=== PATIENT | male | born 1955 | race Caucasian/White ===

== ENCOUNTER 2017-04-13 23:01 | Emergency (ER) | payer MEDICARE ==
--- NOTE | 2017-04-13 23:03 | ED.REPORT ---
HPI-Chest Pain 40 and Over Date of Service Apr 13, 2017 ED Provider: Gus Yin MD Pt is a 61 year old male with a hx of HTN, DM II and hyperlipidemia presenting to the ED via EMS complaining of sudden onset 4/10 chest pain and SOB onset at rest around 2200. Associated symptoms include weakness and diaphoresis. Medics report that he has been working outside a lot recently building a deck but today was resting due to not feeling well. The pain was initially at a 10/10 but when medics arrived it had subsided to a 2/10 chest tightness. Pt was given I Nitro and ASA en route. Nursing Notes Stated Complaint: GENERALIZED WEAKNESS, CHEST PAIN, LOW BP Chief Complaint: Chest pain Nursing Notes Reviewed: Yes Allergies: Coded Allergies: clindamycin (Verified Allergy, Unknown, RASH, 04/08/16) niacin (Verified Allergy, Unknown, FLUSH AND FEELS UNCOMFORTABLE, 04/08/16) General Time Seen by MD: 23:02 Chief Complaint Chest pain Hx Obtained From: Patient, EMS Arrived By: Ambulance Sudden in Onset?: Yes Onset Occurred: 1 - 4 hours ago Symptom Duration: Since onset Quality: Painful Severity: Current: Pain level 4 out of 10 Severity: Maximum: Pain level 10 out of 10 Recent Healthcare: No recent doctor visit, No recent hospitalization Similar Sx Previous: Yes Past Medical History Past Medical History Hypertension DM (on insulin) High Colesterol Heart attack and stroke in the s PTSD Chrones disease Social History Alcohol Use: Denies alcohol use Drug Use: Denies drug use Ambulatory Status Independent Review of Systems Constitutional: Reports: Weakness - generalized, Denies: Fever Respiratory: Reports: Shortness of breath Cardiovascular: Reports: Chest pain GI: Denies: Abdominal pain, Vomiting Skin: Reports Diaphoresis Complete sys rev & neg: except as marked. Physical Exam Initial Vital Signs Vital Signs (First) Date Time Temp Pulse Resp B/P Pulse Ox O2 Delivery O2 Flow Rate FiO2 04/13/17 23:23 36.7 78 16 130/74 97 Room Air Initial VS: Reviewed, Vital signs normal Head / Eyes: Atraumatic, Normocephalic, PERRL ENT: Mucous membranes moist, Conjunctiva normal, No scleral icterus Neck: Supple, Non-tender, Full range of motion Extremities: Vascular intact, Neuro intact, No swelling, No tenderness Skin: Warm, Dry, No cyanosis Neurologic: Alert, Oriented, Nonfocal Psychiatric: Mood/affect normal, Behavior normal, Normal thought content General/Constitutional: Awake, Alert Appearance / Presentation: Positive: Obese Respiratory / Chest: Atraumatic, No chest tenderness, No chest wall deformity Resp Distress / Stridor: Positive: Resp distress mild Cardiovascular: Heart rate NL, Regular rhythm, Heart sounds NL Abdomen: Atraumatic, Soft, Non-tender Interpretation & Diagnostics Lab Results Interpretation Result Diagram: 04/13/17 2311 04/13/17 2311 Test 04/13/17 23:11 04/14/17 02:15 White Blood Count 6.3th/mm3 (3.8-10.1) Red Blood Count 3.92mil/mm3 (4.40-5.80) Hemoglobin 12.6g/dL (13.8-17.2) Hematocrit 37.0% (41.0-50.0) Mean Corpuscular Volume 94.4fL (81-100) Mean Corpuscular Hemoglobin 32.1pg (27.0-35.0) Mean Corpuscular Hemoglobin Concent 34.1% (32.0-37.0) Red Cell Distribution Width 13.2% (12.3-15.4) Platelet Count 274bil/L (150-400) Neutrophils (%) (Auto) 59.2% (40-74) Lymphocytes (%) (Auto) 27.5% (14-46) Monocytes (%) (Auto) 10.1% (4-12) Eosinophils (%) (Auto) 2.4% (0-5) Basophils (%) (Auto) 0.5% (0-3) D-Dimer < 0.50mg/L FEU (<0.50) Sodium Level 142mEq/L (134-144) Potassium Level 3.7mEq/L (3.5-5.2) Chloride Level 102mEq/L (97-108) Carbon Dioxide Level 25mmol/L (18-29) Blood Urea Nitrogen 12mg/dL (8-27) Creatinine 0.70mg/dL (0.76-1.27) Estimat Glomerular Filtration Rate 121mL/min (>59) Glucose Level 179mg/dL (60-99) Calcium Level 8.9mg/dL (8.5-10.1) Magnesium Level 1.9mg/dL (1.6-2.6) Total Bilirubin 0.5mg/dL (0.0-1.2) Aspartate Amino Transf (AST/SGOT) 21U/L (0-50) Alanine Aminotransferase (ALT/SGPT) 20U/L (0-44) Alkaline Phosphatase 65U/L (25-160) Pro-B-Type Natriuretic Peptide 9.40pg/mL (0-210) Total Protein 6.8g/dL (6.4-8.4) Albumin 4.1g/dL (3.4-5.0) Hold Mosley Top Tube Received (Received) Troponin T 0.010ug/L (0.0-0.011) Lab Results Interpretation: Elevated nonfasting glucose, troponin negative 2, d-dimer negative. ECG Interpretation ECG Interpretation: Left anterior fascicular block. Time: 23:06 Interpreted by: ED physician Normal ECG Interpretation: Normal rate (78), Normal sinus rhythm Time: 03:21 Normal ECG Interpretation: Normal rate (74), Normal sinus rhythm X-Ray Chest Interpretation Chest Xray Interpretation: Poor inspiration. No acute pulmonary disease seen. View: Portable, 1 view Interpretation / Wet Read by: Wet read ED physician Re-Eval/Medical Decision Med Decision/Clinical Course 61-year-old male who had chest discomfort and shortness of breath. These have resolved. His ED workup is negative to include negative EKG 2, negative troponin 2, and negative d-dimer. Time of Eval: 01:09 Patient Status: Condition improved Re-Evaluation/Progress Note: Discussed radiology results and plan for repeat Troponin. Time of Eval: 03:19 Patient Status: Condition improved Re-Evaluation/Progress Note: Discussed plan for repeat EKG and discharge. Pt understands and agrees. Counseled Regarding: Diagnosis, Lab results, Need for follow-up, When/why to return to ED Discharge & Departure Primary Impression: Chest pain with low risk for cardiac etiology Disposition: Home Discharge Condition All VS Reviewed: Yes Condition: Improved Patient Instructions: Chest Pain (ED) Additional Instructions: No evidence at this time of serious illness. Your chest x-ray is okay. Your labs do not show evidence of cardiac injury or blood clots in the lungs. Recommended you return to the emergency room over the weekend if he worsens significantly or scheduled to see your provider this week and talk to him about further evaluation if needed. [facility] [place] Attestation Portions of this note were transcribed by Jocelyne Villar. I, Dr. Yin personally performed the history, physical exam and medical decision-making; I reviewed and confirmed the accuracy of the information in the transcribed note. Signed by: Divya Carbajal, 04/13/2017 at 0330. copies to: [facility] [place] [place] Gus Su MD Apr 13, 2017 23:02 JOCELYNE VILLAR Apr 13, 2017 23:10
[2017-04-13] MEDS ORDERED: Nitroglycerin 2% 1 Gm Ointment TOPICAL ONE (23:10)
[2017-04-13 23:23] VITALS: BP 130/74; PULSE 78; RESP 16; O2SAT 97
[2017-04-13 23:31] LABS: BASOPHILS % (AUTO) 0.5 % (0-3); EOSINOPHILS % (AUTO) 2.4 % (0-5); MONOCYTES % (AUTO) 10.1 % (4-12); Mean Corpuscular Hemoglobin 32.1 pg (27.0-35.0); Mean Corpuscular Volume 94.4 fL (81-100); NEUTROPHILS % (AUTO) 59.2 % (40-74); Platelet Count 274 bil/L (150-400)
[2017-04-14 00:09] LABS: Magnesium 1.9 mg/dL (1.6-2.6); TROPONIN T 0.01 ug/L (0.0-0.011)
[2017-04-14] MEDS ORDERED: 0.9% Sodium Chloride 1,000 ML IV ONE (01:25)
[2017-04-14 03:51] VITALS: BP 120/67; PULSE 69; RESP 19; O2SAT 94
[2017-04-14] MEDS ORDERED: Insulin Human NPH-Reg 70-30 100 Unit/mL 10 ML Mdv SUBQ SCH (07:30)
--- NOTE | 2017-04-14 08:05 | DRSVH ---
PROCEDURE: X-RAY CHEST ONE VIEW, PORTABLE ([id number]) INDICATIONS: chest pain TECHNIQUE: One view of the chest was acquired. COMPARISON: None. FINDINGS: Surgical changes and devices: None. Lungs and pleura: No pleural effusions or pneumothorax. Lung volumes are low. There is bilateral per ihilar and basilar atelectasis versus atypical pneumonia. Mediastinum: Mediastinal contours appear normal. Heart size is normal. Bones and chest wall: No suspicious bony lesions. Overlying soft tissues appear unremarkable. IMPRESSION: Low lung volumes with bilateral atelectasis versus atypical pneumonia. Dictated by: Alex Lazo M.D. on 04/14/2017 at 8:03 Approved by: Alex Lazo M.D. on 04/14/2017 at 8:03
[2017-04-15] MEDS ORDERED: AZTH50T PO (15:40)
[2017-04-15] MEDS ORDERED: FLUT16SP NS (15:40)
[2017-04-15] MEDS ORDERED: ASPI1CPM6 PO (15:40)
[2017-04-15] MEDS ORDERED: GABA-502 PO ×2 (15:40)
[2017-04-15] MEDS ORDERED: DEXT1DRO8 BOTH_EYES (15:40)
[2017-04-15] MEDS ORDERED: CYCL10TA9 PO (15:40)
[2017-04-15] MEDS ORDERED: CARB1TAB14 PO (15:40)
[2017-04-15] MEDS ORDERED: LISI1TAB11 PO (15:40)
[2017-04-15] MEDS ORDERED: IPRA4AER IH (15:40)
[2017-04-15] MEDS ORDERED: NPH,100V11 SUBQ ×2 (15:40)
[2017-04-15] MEDS ORDERED: AMMO385C5 TP (15:40)
[2017-04-15] MEDS ORDERED: LIP40 PO (15:40)
[2017-04-15] MEDS ORDERED: ESCI20TA38 PO (15:40)
[2017-04-15] MEDS ORDERED: NITR0.4T6 SL (15:41)
[2017-04-15] MEDS ORDERED: LORA10CA PO (15:41)
[2017-04-15] MEDS ORDERED: PANT40TA3 PO (15:43)
[2017-04-15] MEDS ORDERED: TERA5CAP6 PO (15:43)
[2017-04-15] MEDS ORDERED: PRAZ2CAP2 PO (15:43)
[2017-04-15] MEDS ORDERED: TRAZ150T72 PO (15:43)
[2017-04-15] MEDS ORDERED: SODI126M NS (15:43)
[2017-04-15] MEDS ORDERED: DIPH25CA6 PO (15:46)
[2017-04-15] MEDS ORDERED: ASPI81TA3 PO (15:46)
[2017-04-15] MEDS ORDERED: CHOL200025 PO (15:46)
[2017-04-15] MEDS ORDERED: METF1000 PO (15:51)
== END 2017-04-14 03:52 | disposition home or self-care (01) ==
LOC: SED 23:01
DX: R07.89 Other chest pain (principal); R06.02 Shortness of breath; I10 Essential (primary) hypertension; E11.9 Type 2 diabetes mellitus without complications; E78.5 Hyperlipidemia, unspecified; Z86.73 Personal history of transient ischemic attack (TIA), and cerebral infarction without residual deficits; Z79.4 Long term (current) use of insulin; Z88.1 Allergy status to other antibiotic agents; Z88.8 Allergy status to other drugs, medicaments and biological substances
CPT/HCPCS: 36415; 71010; 80053; 83735; 83880; 84484; 85025; 85378; 93005; 96360; 96372; 99285; J1815; J7030

== ENCOUNTER 2017-04-15 13:15 | Observation (INO) | payer MEDICARE, OTHER ==
[2017-04-15] VITALS (10 sets, daily range): BP systolic 94–134; BP diastolic 39–87; PULSE 63–77; RESP 12–22; O2SAT 97–99
[~2017-04-15] VITALS: Ht 165.1 cm; Wt 113.4 kg
--- NOTE | 2017-04-15 13:22 | ED.REPORT ---
HPI-Chest Pain 40 and Over Date of Service Apr 15, 2017 ED Provider: Betsy Barton MD 61-year-old gentleman with a history of a prior STEMI in the , hypertension and diabetes who presents to the ED via EMS for his second visit in 48 hours complaining of chest pain. Associated symptoms include diaphoresis, weakness, shortness of breath and pain in his left leg. The patient reports that he was pounding stakes with a hammer outside when he began to have a sharp pain in his left leg that soon began to radiate up into his chest and jaw. He describes the pain as a pressure. The pain got progressively worse so the patient's friend called EMS. Prior to arrival to the ED, medics gave the patient ASA and nitro with some relief of pain. He also reports noticing that his glucose has been high for the last few days. Patient states that after being discharged from the hospital two days ago, he had no chest pain yesterday but did not exert himself. He was seen two days ago in the ED, after some exertional chest pain, that he initially rated 10/10. After receiving nitro, his pain went down to a 2/10 when medics arrived. He was pain-free by the time he arrived to the ED. Patient had a full unremarkable workup in the emergency room including 2 hour repeat troponin which was unremarkable and he was discharged home. Nursing Notes Stated Complaint: CHEST PAIN/SHORTNESS OF BREATH Chief Complaint: Chest Pain Nursing Notes Reviewed: Yes Allergies: Coded Allergies: clindamycin (Verified Allergy, Unknown, RASH, 04/08/16) niacin (Verified Allergy, Unknown, FLUSH AND FEELS UNCOMFORTABLE, 04/08/16) Scheduled Albuterol/Ipratropium (Combivent Respimat Inhal [place]) 120 Spr/4 Gm Inhaler 1 PUFF IH QID Ammonium Lactate (Ammonium Lactate) 140 Gm Cream..g. 1 APPLIC TP BID Aspirin/Dipyridamole (Aspirin-Dipyridam ER 25-200 mg) 25 Mg-200 Mg Cpmp.12hr 1 EACH PO BID Atorvastatin (Lipitor) 40 Mg Tablet 40 MG PO HS Azathioprine (Azathioprine) 50 Mg Tablet 100 MG PO QAM Carbidopa/Levodopa 25-100 mg (Carbidopa/Levodopa 25-100 mg) 1 Each Tablet 1 TABLET PO HS Escitalopram Oxalate (Escitalopram Oxalate) 20 Mg Tablet 20 MG PO QAM Fluticasone Propionate (Fluticasone Propionate Nasal) 16 Gm [place].susp 2 SPRAY NS QAM Gabapentin (Gabapentin) 300 Mg Capsule 300 MG PO QAM Gabapentin (Gabapentin) 300 Mg Capsule 600 MG PO HS Lisinopril / HCTZ 20-25 mg (Lisinopril / HCTZ 20-25 mg) 1 Each Tablet 1 EACH PO QAM Loratadine (Claritin) 10 Mg Capsule 10 MG PO QAM NPH, Human Insulin Isophane (HUMulin-N U100 Insulin Vial) 100 Unit/1 Ml Vial 45 UNIT SUBQ DAILYWM NPH, Human Insulin Isophane (HUMulin-N U100 Insulin Vial) 100 Unit/1 Ml Vial 40 UNIT SUBQ DAILYWD Pantoprazole DR (Pantoprazole DR) 40 Mg Tablet.dr 40 MG PO BIDWM Prazosin (Prazosin) 2 Mg Capsule 2 MG PO HS Sodium Chloride (Saline Nasal Mist) 126 Ml Mist 1 SPRAY NS QAM Terazosin (Terazosin) 5 Mg Capsule 5 MG PO HS Trazodone (Trazodone) 150 Mg Tablet 300 MG PO HS Scheduled PRN Cyclobenzaprine (Cyclobenzaprine) 10 Mg Tablet 10 MG PO TID PRN PRN Spasm Dextran 70/Hypromellose/Pf (Artificial Tears Drops) 1 Each Droperette 1 DROP BOTH_EYES QID PRN PRN DRY EYES Nitroglycerin SL (Nitroglycerin SL) 0.4 Mg Tab.subl 0.4 MG SL Q5MIN PRN PRN For Chest Pain General Time Seen by MD: 13:20 Chief Complaint Chest pain Hx Obtained From: Patient Arrived By: Ambulance Sudden in Onset?: Yes Onset Occurred: Just prior to arrival Location: : Substernal Quality: Pressure Radiation: : Jaw Severity: Current: Mild Severity: Maximum: Moderate Recent Healthcare: Recent doctor visit Similar Sx Previous: Yes Past Medical History Past Medical History Hypertension DM (on insulin) High Colesterol Heart attack and stroke in the s PTSD Chrones disease Social History Alcohol Use: Denies alcohol use Drug Use: Denies drug use Other Social History: Good social support, Ambulatory Status Independent Review of Systems Review of Systems Note: +jaw pain Constitutional: Reports: Weakness - generalized, Denies: Chills, Fever Respiratory: Reports: Shortness of breath, Denies: Non-productive cough Cardiovascular: Reports: Chest pain, Dyspnea on exertion Musculoskeletal: Reports: Extremity pain (left leg) Skin: Reports Diaphoresis, Denies Itching, Denies Rash Complete sys rev & neg: except as marked. Physical Exam Initial Vital Signs Vital Signs (First) Date Time Temp Pulse Resp B/P Pulse Ox O2 Delivery O2 Flow Rate FiO2 04/15/17 13:18 36.7 77 17 130/54 97 Room Air Initial VS: Reviewed General/Constitutional: Awake, Alert, No acute distress Respiratory / Chest: Atraumatic, Breath sounds NL, Breath sounds = bilat, No respiratory distress Cardiovascular: Heart rate NL, Regular rhythm, Heart sounds NL Abdomen: Atraumatic, Soft, Non-tender Neck: Atraumatic, Supple Lower Extremity / Pelvis / MS: Atraumatic, No edema Skin: Atraumatic, No rash appears flushed Neurologic: Oriented X3, Speech NL, No motor deficits, No sensory deficits Psychiatric: Affect NL, Mood NL Head / Eyes: Atraumatic, Normocephalic photophobic Upper Extremity / MS: Atraumatic, Full range of motion Interpretation & Diagnostics Lab Results Interpretation Result Diagram: 04/15/17 1350 04/15/17 1350 Test 04/15/17 13:50 White Blood Count 7.7th/mm3 (3.8-10.1) Red Blood Count 3.69mil/mm3 (4.40-5.80) Hemoglobin 11.9g/dL (13.8-17.2) Hematocrit 34.7% (41.0-50.0) Mean Corpuscular Volume 94.0fL (81-100) Mean Corpuscular Hemoglobin 32.2pg (27.0-35.0) Mean Corpuscular Hemoglobin Concent 34.3% (32.0-37.0) Red Cell Distribution Width 13.1% (12.3-15.4) Platelet Count 257bil/L (150-400) Neutrophils (%) (Auto) 68.2% (40-74) Lymphocytes (%) (Auto) 20.6% (14-46) Monocytes (%) (Auto) 9.3% (4-12) Eosinophils (%) (Auto) 1.4% (0-5) Basophils (%) (Auto) 0.4% (0-3) Activated Partial Thromboplast Time 23.6sec (22.8-33.0) Sodium Level 143mEq/L (134-144) Potassium Level 3.6mEq/L (3.5-5.2) Chloride Level 105mEq/L (97-108) Carbon Dioxide Level 23mmol/L (18-29) Blood Urea Nitrogen 14mg/dL (8-27) Creatinine 1.00mg/dL (0.76-1.27) Estimat Glomerular Filtration Rate 80mL/min (>59) Glucose Level 95mg/dL (60-99) Calcium Level 8.9mg/dL (8.5-10.1) Magnesium Level 1.7mg/dL (1.6-2.6) Total Bilirubin 0.5mg/dL (0.0-1.2) Aspartate Amino Transf (AST/SGOT) 14U/L (0-50) Alanine Aminotransferase (ALT/SGPT) 15U/L (0-44) Alkaline Phosphatase 58U/L (25-160) Troponin T < 0.010ug/L (0.0-0.011) Total Protein 6.1g/dL (6.4-8.4) Albumin 3.8g/dL (3.4-5.0) ECG Interpretation ECG Interpretation: left axis deviation similar to prior with no acute ischemia Time: 13:34 Interpreted by: ED physician Normal ECG Interpretation: Normal rate (79), Normal sinus rhythm ECG Interpretation: with recurrent pain, no ST changes Time: 14:04 Interpreted by: ED physician Normal ECG Interpretation: Normal rate (72), Normal sinus rhythm X-Ray Chest Interpretation Chest Xray Interpretation: IMPRESSION: Reduced inspiration, lordotic positioning, no definite acute disease. Source of chest pain is not found. Dictated by: Anupam Alegre M.D. on 04/15/2017 at 14:23 Approved by: Anupam Alegre M.D. on 04/15/2017 at 14:24 View: Portable, 1 view Interpretation / Wet Read by: Interpret - Radiologist Re-Eval/Medical Decision Med Decision/Clinical Course 61-year-old woman with recurrent chest pain with exertion. Present to the emergency room with ear workup for same 48 hours ago. Multiple risk factors for coronary artery disease. Pain recurred with exertion today. Resolved with nitroglycerin. With the nitroglycerin had worn off he did have additional pain at rest but again resolved with sublingual nitroglycerin and has remained pain free on Nitropaste with a heparin drip. EKGs do not show acute ischemic changes, troponin is unremarkable review of labs are unremarkable. The was contacted and there are no beds available so he will be admitted to our hospitalist service. Time of Eval: 13:38 Re-Evaluation/Progress Note: Discussed plan for consult with cardiology and plan for admit. Patient understands and agrees to plan. All questions were addressed. Time of Eval: 13:52 Re-Evaluation/Progress Note: Patient reports that the chest pressure has returned. Plan for repeat EKG and nitro paste. Counseled Regarding: Diagnosis, Lab results, Need for admission Discharge & Departure Primary Impression: Chest pain on exertion Disposition: ADMITTED TO HOSPITAL Discharge Condition All VS Reviewed: Yes Condition: Stable [facility] Divya Attestation Portions of this note were transcribed by Josephine Grimes. I, Dr. Barton personally performed the history, physical exam and medical decision-making; I reviewed and confirmed the accuracy of the information in the transcribed note. Signed by: Divya Finnegan, 04/15/17 and 1400 copies to: [facility] Betsy Barton MD Apr 15, 2017 13:22 Bhavna Grimes Apr 15, 2017 13:45
[2017-04-15] MEDS ORDERED: Heparin 5,000 Unit/mL Inj IVPUSH ONE (13:45)
[2017-04-15] MEDS ORDERED: Heparin 25K Unit/500mL 0.45 NS 25,000 UNIT in IV Premix 1 EACH IV ONE (13:45)
[2017-04-15] MEDS ORDERED: Nitroglycerin 2% 1 Gm Ointment TOPICAL ONE (13:55)
[2017-04-15 14:00] LABS: BASOPHILS % (AUTO) 0.4 % (0-3); EOSINOPHILS % (AUTO) 1.4 % (0-5); MONOCYTES % (AUTO) 9.3 % (4-12); Mean Corpuscular Hemoglobin 32.2 pg (27.0-35.0); NEUTROPHILS % (AUTO) 68.2 % (40-74); Platelet Count 257 bil/L (150-400)
--- NOTE | 2017-04-15 14:26 | DRSVH ---
PROCEDURE: X-RAY CHEST ONE VIEW, PORTABLE ([id number]) INDICATIONS: chest pain TECHNIQUE: One view of the chest was acquired. COMPARISON: [facility], CR, XR CHEST 1VW (PORTABLE), 04/13/2017, 23:05. [facility], CR, XR CHEST 1VW (PORTABLE), 04/08/2016, 11:04. FINDINGS: Surgical changes and devices: None. Lungs and pleura: No pleural effusions or pneumothorax. Lungs are clear. Mediastinum: Mediastinal contours appear normal. Heart size is normal. Bones and chest wall: No suspicious bony lesions. Overlying soft tissues appear unremarkable. IMPRESSION: Reduced inspiration, lordotic positioning, no definite acute disease. Source of chest pa in is not found. Dictated by: Anupam Alegre M.D. on 04/15/2017 at 14:23 Approved by: Anupam Alegre M.D. on 04/15/2017 at 14:24
[2017-04-15 14:29] LABS: Magnesium 1.7 mg/dL (1.6-2.6)
[2017-04-15 14:39] LABS: TROPONIN T < 0.010 ug/L (0.0-0.011)
[2017-04-15] MEDS ORDERED: DEXT1DRO8 BOTH_EYES (15:40)
[2017-04-15] MEDS ORDERED: ESCI20TA38 PO (15:40)
[2017-04-15] MEDS ORDERED: AZTH50T PO (15:40)
[2017-04-15] MEDS ORDERED: IPRA4AER IH (15:40)
[2017-04-15] MEDS ORDERED: CYCL10TA9 PO (15:40)
[2017-04-15] MEDS ORDERED: CARB1TAB14 PO (15:40)
[2017-04-15] MEDS ORDERED: NPH,100V11 SUBQ ×2 (15:40)
[2017-04-15] MEDS ORDERED: GABA-502 PO ×2 (15:40)
[2017-04-15] MEDS ORDERED: ASPI1CPM6 PO (15:40)
[2017-04-15] MEDS ORDERED: FLUT16SP NS (15:40)
[2017-04-15] MEDS ORDERED: LIP40 PO (15:40)
[2017-04-15] MEDS ORDERED: LISI1TAB11 PO (15:40)
[2017-04-15] MEDS ORDERED: AMMO385C5 TP (15:40)
[2017-04-15] MEDS ORDERED: NITR0.4T6 SL (15:41)
[2017-04-15] MEDS ORDERED: LORA10CA PO (15:41)
[2017-04-15] MEDS ORDERED: SODI126M NS (15:43)
[2017-04-15] MEDS ORDERED: TERA5CAP6 PO (15:43)
[2017-04-15] MEDS ORDERED: TRAZ150T72 PO (15:43)
[2017-04-15] MEDS ORDERED: PRAZ2CAP2 PO (15:43)
[2017-04-15] MEDS ORDERED: PANT40TA3 PO (15:43)
[2017-04-15] MEDS ORDERED: Ondansetron 2 mg/mL 2 mL Inj IVPUSH PRN ×2 (15:45→16:30)
[2017-04-15] MEDS ORDERED: Alum-Mag Hydrox-Simeth 30 mL Suspension PO PRN ×2 (15:45→16:30)
[2017-04-15] MEDS ORDERED: ASPI81TA3 PO (15:46)
[2017-04-15] MEDS ORDERED: DIPH25CA6 PO (15:46)
[2017-04-15] MEDS ORDERED: CHOL200025 PO (15:46)
[2017-04-15] MEDS ORDERED: METF1000 PO (15:51)
[2017-04-15] MEDS: Sodium Chloride LOK Flush 10 mL Syringe IVFLUSH SCH (16:30)
[2017-04-15] MEDS ORDERED: Polyethylene Glycol (PEG) 17 Gm Powder PO PRN (16:30)
[2017-04-15] MEDS ORDERED: Atropine 1 mg/10 mL (Code) Syringe IVPUSH PRN (16:30)
[2017-04-15] MEDS ORDERED: Senna-Docusate 8.6-50 mg Tablet PO PRN (16:30)
[2017-04-15] MEDS ORDERED: diphenhydrAMINE 25 mg Capsule PO PRN (16:40)
[2017-04-15] MEDS ORDERED: Albuterol-Ipratropium 3 mL Inhalation Solution NEB PRN (16:40)
[2017-04-15] MEDS ORDERED: Heparin 25K Unit/500mL 0.45 NS 25,000 UNIT in IV Premix 1 EACH IV SCH (16:45)
[2017-04-15] MEDS ORDERED: Heparin 5,000 Unit/mL Inj IVPUSH PRN (16:45)
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
[2017-04-15] MEDS: Sodium Chloride NAS 45 mL Spray NASAL SCH (17:10)
[2017-04-15] MEDS: Artificial Tears 15 mL Ophthalmic Solution BOTH_EYES SCH ×2 (17:20→19:54)
--- NOTE | 2017-04-15 17:47 | NUR ---
Admit Patient arrived to room 2028 via gurney. Ambulated independently to bed. Patient A&Ox3, VSS, states chest pain is much better now, rates it 2/. Dyspnea noted on exertion, patient on 2L NC, SPO2 mid - high 90s. Patient pleasant and cooperative with admission assessment. at bedside and call light within reach.
[2017-04-15] MEDS: Pantoprazole 40 mg ER24 Tablet PO SCH (18:15)
--- NOTE | 2017-04-15 18:34 | PCM.ADCARE ---
Advance Care Planning Note Plan: Purpose of encounter: Goals of care Parties in attendance: The patient, Patient's (Donna), the patient's best friend, Dr. Cardona Decisional capacity: Good Diagnosis: Hypertension History of CVA Insulin-dependent diabetes type II Chest pain Morbid obesity GERD Parkinson's-like illness History of Crohn's Depression/anxiety/PTSD Plan: The patient is aware of the current diagnosis and would like to continue to be full code. The patient and his understands that this means for chest compressions, intubation, pressors, and all measures involved with CPR. CODE STATUS: Full code Time spent with advanced care planning: Greater than 16 minutes Emiliana Cardona DO Apr 15, 2017 18:34
[2017-04-15] MEDS: Ammonium Lactate TOPICAL SCH (20:30)
[2017-04-15] MEDS ORDERED: Dipyridamole-Aspirin 200-25 mg ER12 Capsule PO SCH (20:30)
[2017-04-15] MEDS ORDERED: Insulin Human NPH 100 Unit/mL 3 mL Inj SUBQ SCH (21:00)
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
[2017-04-16] MEDS: Sodium Chloride LOK Flush 10 mL Syringe IVFLUSH SCH ×2 (00:30→07:56)
[2017-04-16 03:56] VITALS: BP 101/53; PULSE 62; RESP 20; O2SAT 98
[2017-04-16 04:53] LABS: BASOPHILS % (AUTO) 0.2 % (0-3); EOSINOPHILS % (AUTO) 2.6 % (0-5); Mean Corpuscular Hemoglobin 32.4 pg (27.0-35.0); NEUTROPHILS % (AUTO) 62.3 % (40-74); Platelet Count 240 bil/L (150-400)
[2017-04-16 05:06] LABS: INR 0.99 ratio
[2017-04-16 05:12] LABS: Magnesium 1.8 mg/dL (1.6-2.6); Phosphorus 4.1 mg/dL (2.5-4.9)
--- NOTE | 2017-04-16 06:27 | NUR ---
Anxiety/CP Pt anxious over speaking with Administration regarding [employer]. 10 mins after conversation pt complained of 7/10 CP. STAT EKG showed no changes. Two doses of nitroglycerine given to take pain back down to 2/10 which is baseline at start of shift.
[2017-04-16] MEDS: Artificial Tears 15 mL Ophthalmic Solution BOTH_EYES SCH ×2 (06:30→10:53)
[2017-04-16 07:36] VITALS: PULSE 61; RESP 20; O2SAT 99
[2017-04-16 07:54] VITALS: BP 114/67; PULSE 64; RESP 18; O2SAT 98
[2017-04-16] MEDS ORDERED: Insulin Human NPH 100 Unit/mL 3 mL Inj SUBQ SCH (08:00)
[2017-04-16] MEDS: Ammonium Lactate TOPICAL SCH (08:30)
[2017-04-16] MEDS ORDERED: Fluticasone 0.05% 15 Spray/2 Gm 16 Gm Nasal Spray NASAL SCH (08:30)
--- NOTE | 2017-04-16 08:30 | NUR ---
Off unit Pt off unit for stress test at 0815. Tele removed and IV SL from Heparin. Blood glucose this am was 80, pt had been NPO will hold am medications till pt arrives back to the unit. Vitals stable.
--- NOTE | 2017-04-16 09:26 | PCM.DIMED ---
Liu Ambrose DO 04/16/17 0922: Discharge Instructions Date of Service Apr 16, 2017 Dates of Hospitalization Apr 15, 2017 at 15:49 Discharge Diagnosis Discharge Diagnosis Exertional chest pain, POA, acute. Active Insulin dependent DM2, POA, chronic. Active HTN, POA, chronic. Active Seasonal Allergies, POA, chronic. Stable Morbid Obesity, POA, chronic. Stable GERD, POA, chronic. Stable BPH, POA, chronic. Stable History of CVA, chronic. Stable Parkinson's like illness, POA, Chronic. Stable History of Crohn's, POA, chronic. Stable Depression and anxiety, POA, chronic. Stable Medication Instructions Additional med instructions Continue other home meds as previously prescribed. You may take ibuprofen as needed for chest wall pain. Test Results Test Results X-RAY CHEST ONE VIEW, PORTABLE IMPRESSION: Reduced inspiration, lordotic positioning, no definite acute disease. Source of chest pain is not found. Dictated by: Anupam Alegre M.D. on 04/15/2017 at 14:23 Approved by: Anupam Alegre M.D. on 04/15/2017 at 14:24 1 DAY PHARMACOLOGICAL STRESS TEST IMPRESSION: Normal low risk pharmaceutical nuclear stress study 1) Normal myocardial stress perfusion study with no evidence of ischemia or infarction. 2) Normal left ventricular size, wall motion, and systolic function (post stress EF 63%). 3) No ECG evidence of ischemia with lexiscan. 4) No angina during the entire study. 5) Compared to the nuclear stress test done 03/12/2012, no significant change. Dictated by: Shari Deleon M.D. on 04/16/2017 at 15:45 Approved by: Shari Deleon M.D. on 04/16/2017 at 15:49 Diet Discharge Diet: No restrictions, Diabetic Activity Discharge Activity: No restrictions Call your provider Call your provider for: Fever or Chills, Shortness of breath, Bleeding, Chest pain, Vomitting, Excessive diarrhea, Weakness (unilateral) Patient Instructions Patient Instructions You came to the emergency department yesterday with concern for chest pain. Based on the labs that we are able to obtain as well as the stress test performed today, I am not concerned that this is a cardiac issue. I would like you to continue taking the medications listed above Follow-up plan Please follow-up with your primary care provider within the next week for further management of your symptoms. [facility] Follow-up with PCP in: 1 week Emiliana Cardona DO 04/16/172036: Discharge Instructions Attending's Statement The patient was seen and examined together with Dr. Ambrose on 04/16/17 and I agree with the history, exam and plan as outlined in the note above. Lui Ambrose DO Apr 16, 2017 09:22 Emiliana Cardona DO Apr 16, 2017 20:37
[2017-04-16 10:24] VITALS: PULSE 69
[2017-04-16] MEDS: Pantoprazole 40 mg ER24 Tablet PO SCH (10:46)
[2017-04-16] MEDS: Sodium Chloride NAS 45 mL Spray NASAL SCH (10:49)
[2017-04-16 11:47] VITALS: BP 125/75; PULSE 58; RESP 21; O2SAT 94
--- NOTE | 2017-04-16 15:32 | NUR ---
Spoke with Aura Escalera [place] patient access and this patient is 100% permanent and total. This patient holds no other insurance. Updated [employer]
--- NOTE | 2017-04-16 15:51 | DRSVH ---
PROCEDURE: 1 DAY PHARMACOLOGICAL STRESS TEST Rest and pharmacological stress myocardial perfusion SPECT with gated imaging and ejection fraction RADIOPHARMACEUTICAL: 16.8 mCi Tc-99m tetrafosmin IV at rest and 46.2 mCi Tc-99m tetrafosmin IV at pe ak effect of pharmacological stress. A [id number] was performed. INDICATIONS: CHEST PAIN. TECHNIQUE: Radiopharmaceutical was injected at peak stress test, and also at rest. SPECT images wer e obtained. SPECT myocardial perfusion images were displayed in short axis, horizontal long axis, an d vertical long axis views. Gated images were reviewed using Rescale software. COMPARISON: [facility], [place], MYOCARD PERF SPECT MULT, MIBI, 03/12/2012, 12:28. CARDIAC STRESS: A pharmacologic stress test was performed under the supervision of an attending staff, using an infus ion of lexiscan 0.4mg IV X1. Hemodynamic data: There is normal blood pressure and heart rate response to pharmacologic stress. Symptoms: The patient denied anginal chest pain. Aminophylline: 100mg. EKG: No diagnostic changes of ischemia; rare PACs. FINDINGS: Raw data: There is good myocardial uptake of radiotracer. No significant motion artifacts. Left ventricle function: Gated images demonstrate normal left ventricular wall thickening. No segme ntal wall motion abnormalities. No transient ischemic dilation. Left ventricle resting end diastoli c volume is 91 mL. Left ventricle stress ejection fraction is 63%; normal range is above 45%. Myocardial perfusion: There is normal distribution of activity in the right and left ventricular victorino cardium. No fixed or reversible perfusion defects. IMPRESSION: Normal low risk pharmaceutical nuclear stress study 1) Normal myocardial stress perfusion study with no evidence of ischemia or infarction. 2) Normal left ventricular size, wall motion, and systolic function (post stress EF 63%). 3) No ECG evidence of ischemia with lexiscan. 4) No angina during the entire study. 5) Compared to the nuclear stress test done 03/12/2012, no significant change. Dictated by: Shari Deleon M.D. on 04/16/2017 at 15:45 Approved by: Shari Deleon M.D. on 04/16/2017 at 15:49
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
--- NOTE | 2017-04-16 17:14 | NUR ---
Discharge Pt left with at 1715. A&Ox3, vitals stable, all belongings taken with. IV and tele removed. All discharge instructions gone over and understood. No changes in home medications. Follow up apt to be made by patient due to [facility] being so [facility] Pt wheeled out and with no complaints. All questions answered.
== END 2017-04-16 17:32 | disposition home or self-care (01) ==
LOC: SED 13:15 → PCC 15:49
PROVIDERS: ADMIT Neuromusculoskeletal Medicine & OMM; ATTEND Neuromusculoskeletal Medicine & OMM
DX: R07.89 Other chest pain (principal); I11.9 Hypertensive heart disease without heart failure; I10 Essential (primary) hypertension; J30.2 Other seasonal allergic rhinitis; E66.01 Morbid (severe) obesity due to excess calories; K21.9 Gastro-esophageal reflux disease without esophagitis; N40.0 Benign prostatic hyperplasia without lower urinary tract symptoms; Z86.73 Personal history of transient ischemic attack (TIA), and cerebral infarction without residual deficits; I25.2 Old myocardial infarction; E78.00 Pure hypercholesterolemia, unspecified; G20 Parkinson's disease; K50.90 Crohn's disease, unspecified, without complications; F32.9 Major depressive disorder, single episode, unspecified; F41.9 Anxiety disorder, unspecified; F10.10 Alcohol abuse, uncomplicated; F43.10 Post-traumatic stress disorder, unspecified; Z87.891 Personal history of nicotine dependence; Z79.82 Long term (current) use of aspirin; Z79.4 Long term (current) use of insulin; Z79.84 Long term (current) use of oral hypoglycemic drugs
CPT/HCPCS: 36415; 71010; 78452; 80053; 80061; 82948; 83036; 83735; 84100; 84484; 85025; 85610; 85730; 93005; 93017; 94664; 96361; 96374; 96376; 99285; A9502; G0378; J0280; J1644; J1815; J2785; J7500; J7620

== ENCOUNTER 2017-05-17 11:58 | Emergency (ER) | payer OTHER ==
[~2017-05-17] VITALS: Ht 165.1 cm; Wt 121.4 kg
[~2017-05-17 11:58] MED LIST: AMMO385C5 TP; ASPI1CPM6 PO; ASPI81TA3 PO; AZTH50T PO; CARB1TAB14 PO; CHOL200025 PO; CYCL10TA9 PO; DEXT1DRO8 BOTH_EYES; DIPH25CA6 PO; ESCI20TA38 PO; FLUT16SP NS; GABA-502 PO; IPRA4AER IH; LIP40 PO; LISI1TAB11 PO; LORA10CA PO; METF1000 PO; NITR0.4T6 SL; NPH,100V11 SUBQ; PANT40TA3 PO; PRAZ2CAP2 PO; SODI126M NS; TERA5CAP6 PO; TRAZ150T72 PO
[2017-05-17 12:07] VITALS: BP 167/73; PULSE 65; RESP 18; O2SAT 98
--- NOTE | 2017-05-17 12:36 | ED.REPORT ---
HPI-Headache Date of Service May 17, 2017 ED Provider: Faby Cortez History of Present Illness: headache for 2 weeks. headaches as a child but not as an adult. Tried tylenol and flexeril some help but not enough. blood sugar is 122. seen at the [place]. 07/02, no vomiting. family hx of migraines Nursing Notes Stated Complaint: HEADACHE Chief Complaint: Headache Nursing Notes Reviewed: Yes Allergies: Coded Allergies: clindamycin (Verified Allergy, Unknown, RASH, 04/15/17) niacin (Verified Allergy, Unknown, FLUSH AND FEELS UNCOMFORTABLE, 04/15/17) Scheduled Albuterol/Ipratropium (Combivent Respimat Inhal Wiseman) 120 Spr/4 Gm Inhaler 1 PUFF IH QID Ammonium Lactate (Ammonium Lactate) 140 Gm Cream..g. 1 APPLIC TP BID TO DRY SKIN ON FEET, NOT BETWEEN TOES Aspirin Chew (Aspirin Chew) 81 Mg Chew 81 MG PO QAM Aspirin/Dipyridamole (Aspirin-Dipyridam ER 25-200 mg) 25 Mg-200 Mg Cpmp.12hr 1 EACH PO BID Atorvastatin (Lipitor) 40 Mg Tablet 40 MG PO HS Azathioprine (Azathioprine) 50 Mg Tablet 100 MG PO QAM Carbidopa/Levodopa 25-100 mg (Carbidopa/Levodopa 25-100 mg) 1 Each Tablet 1 TABLET PO HS Cholecalciferol (Vitamin D3) (Vitamin D3) 2,000 Unit Tablet 2,000 UNIT PO QAM Escitalopram Oxalate (Escitalopram Oxalate) 20 Mg Tablet 20 MG PO QAM Fluticasone Propionate (Fluticasone Propionate Nasal) 16 Gm Wiseman.susp 2 SPRAY NS QAM Gabapentin (Gabapentin) 300 Mg Capsule 300 MG PO QAM GABAPENTIN 300 MG IN AM & GABAPENTIN 600 MG AT HS Gabapentin (Gabapentin) 300 Mg Capsule 600 MG PO HS GABAPENTIN 300 MG IN AM & GABAPENTIN 600 MG AT HS Lisinopril / HCTZ 20-25 mg (Lisinopril / HCTZ 20-25 mg) 1 Each Tablet 1 EACH PO QAM Loratadine (Claritin) 10 Mg Capsule 10 MG PO QAM Metformin (Glucophage) 1,000 Mg Tablet 1,000 MG PO BIDWM NPH, Human Insulin Isophane (HUMulin-N U100 Insulin Vial) 100 Unit/1 Ml Vial 45 UNIT SUBQ DAILYWM INSULIN NPH 45 UNITS IN AM AND INSULIN NPH 40 UNITS IN EVENING NPH, Human Insulin Isophane (HUMulin-N U100 Insulin Vial) 100 Unit/1 Ml Vial 40 UNIT SUBQ HS INSULIN NPH 45 UNITS IN AM AND INSULIN NPH 40 UNITS IN EVENING Pantoprazole DR (Pantoprazole DR) 40 Mg Tablet.dr 40 MG PO BIDWM Prazosin (Prazosin) 2 Mg Capsule 4 MG PO HS Sodium Chloride (Saline Nasal Mist) 126 Ml Mist 2 SPRAY NS QAM Terazosin (Terazosin) 5 Mg Capsule 5 MG PO HS Trazodone (Trazodone) 150 Mg Tablet 300 MG PO HS Scheduled PRN Cyclobenzaprine (Cyclobenzaprine) 10 Mg Tablet 10 MG PO TID PRN PRN Spasm Dextran 70/Hypromellose/Pf (Artificial Tears Drops) 1 Each Droperette 1 DROP BOTH_EYES QID PRN PRN DRY EYES Nitroglycerin SL (Nitroglycerin SL) 0.4 Mg Tab.subl 0.4 MG SL Q5MIN PRN PRN For Chest Pain diphenhydrAMINE HCl (Benadryl) 25 Mg Capsule 25-50 MG PO DAILY PRN PRN ALLERGIES /INSOMNIA General Time Seen by MD: 12:35 Chief Complaint Headache Hx Obtained From: Patient Sudden in Onset?: No Symptom Duration: Since onset Location: : Frontal left: Frontal right Past Medical History Past Medical History Hypertension DM (on insulin) High Colesterol Heart attack and stroke in the PTSD Chrones disease Past Surgical History ear surgery Smoking History Former Smoker (quit 15 years ago 05/17/2017) Social History Alcohol Use: Denies alcohol use Drug Use: Denies drug use Other Social History: Good social support, Occupation 1 [employer] 05/17/2017 Ambulatory Status Independent Review of Systems Basic Review of Systems Respiratory: No shortness of breath, No cough, No wheeze Hematologic: No bleeding, No bruising Endocrine: No cold intolerance, No heat intolerance, No weight gain, No weight loss Physical Exam Initial Vital Signs Vital Signs (First) Date Time Temp Pulse Resp B/P Pulse Ox O2 Delivery O2 Flow Rate FiO2 05/17/17 12:07 36.6 65 18 167/73 98 Room Air Initial VS: Reviewed, Vital signs normal ENT: Mucous membranes moist, Conjunctiva normal, No scleral icterus Respiratory: Breath sounds normal, Clear to auscultation, No respiratory distress Cardiovascular: Regular rate & rhythm, Heart sounds normal, Intact distal pulses Abdomen / GI: Soft, Non-tender, No guarding, No rebound, No distention Back: No CVA tenderness Lymphatic: No lymphadenopathy Extremities: Vascular intact, Neuro intact, No swelling, No tenderness Skin: Warm, Dry, No cyanosis Psychiatric: Mood/affect normal, Behavior normal, Normal thought content General/Constitutional: Awake, Alert, No acute distress, Well appearing, Well developed, Well hydrated, Well nourished, Cooperative, Not toxic appearing Head / Eyes: Atraumatic, Normocephalic, PERRL, EOMI has no teeth dentures only Neck: Atraumatic, Supple, No meningismus, Full range of motion, No adenopathy patient with large neck, baseline for him Neurologic: Oriented X3, Speech NL, No motor deficits, No sensory deficits ENT: Atraumatic, Airway patent, Mucous membranes moist, Pharynx NL Respiratory / Chest: Atraumatic, Breath sounds NL, Breath sounds = bilat, No respiratory distress Cardiovascular: Heart rate NL, Regular rhythm, Heart sounds NL, No gallop Interpretation & Diagnostics Interpretation & Diagnostics: PROCEDURE: CT NECK SOFT TISSUES WITH CONTRAST ([id number]) INDICATIONS: ? gas in neck TECHNIQUE: After the administration of intravenous contrast, 3.0 mm axial sections acquired from the sella to the aortic arch. Additional oblique axial 3.0 mm sections acquired through the pharynx. 3 mm thick coronal reformats were generated. For radiation dose reduction, the following was used: automated exposure control. COMPARISON: CT brain 05/17/2017 FINDINGS: Image quality: Excellent. Lymph nodes: No enlarged lymph nodes seen throughout the neck. Vessels: Visualized vasculature appears patent. Neck spaces: The oropharynx, nasopharynx, and pharynx demonstrate no mucosal lesions. The vocal cords, false vocal cords, pyriform sinuses, epiglottis, vallecula, and tongue base all appear normal. Extramucosal spaces appear unremarkable. Glands: The parotid and submandibular glands appear normal. Thyroid gland contains calcifications on the right. Miscellaneous: Visualized brain and orbits appear normal. Lung apices appear clear with no pneumothorax or pneumomediastinum. Superficial soft tissues appear normal. Bones: No suspicious bony lesions. Visualized sinuses again show chronic maxillary sinusitis, left greater than right, mastoids appear unremarkable. IMPRESSION: 1. No subcutaneous emphysema is identified. No pneumothorax or pneumomediastinum in the included areas. No evidence of infectious/inflammatory process in the neck. 2. Chronic bilateral maxillary sinusitis, left greater than right. Dictated by: Wilian Bartlett M.D. on 05/17/2017 at 15:01 Approved by: Wilian Bartlett M.D. on 05/17/2017 at 15:08 Lab Results Interpretation Result Diagram: 05/17/17 1235 05/17/17 1235 Test 05/17/17 12:35 05/17/17 14:35 White Blood Count 6.8th/mm3 (3.8-10.1) Red Blood Count 3.09mil/mm3 (4.40-5.80) Hemoglobin 10.0g/dL (13.8-17.2) Hematocrit 29.4% (41.0-50.0) Mean Corpuscular Volume 95.1fL (81-100) Mean Corpuscular Hemoglobin 32.4pg (27.0-35.0) Mean Corpuscular Hemoglobin Concent 34.0% (32.0-37.0) Red Cell Distribution Width 13.5% (12.3-15.4) Platelet Count 216bil/L (150-400) Neutrophils (%) (Auto) 66.8% (40-74) Lymphocytes (%) (Auto) 21.6% (14-46) Monocytes (%) (Auto) 8.7% (4-12) Eosinophils (%) (Auto) 2.3% (0-5) Basophils (%) (Auto) 0.3% (0-3) Reticulocyte Count,Calculated 2.1% (0.6-2.6) Sodium Level 145mEq/L (134-144) Potassium Level 3.6mEq/L (3.5-5.2) Chloride Level 110mEq/L (97-108) Carbon Dioxide Level 23mmol/L (18-29) Blood Urea Nitrogen 14mg/dL (8-27) Creatinine 0.76mg/dL (0.76-1.27) Estimat Glomerular Filtration Rate 110mL/min (>59) Glucose Level 136mg/dL (60-99) Calcium Level 8.6mg/dL (8.5-10.1) Iron Level 50ug/dL (35-150) Total Iron Binding Capacity 309ug/dL (250-450) Percent Iron Saturation 16%sat (15-50) Unsaturated Iron Binding 259.3ug/dL Ferritin 37ng/mL (30-400) Total Bilirubin 0.8mg/dL (0.0-1.2) Aspartate Amino Transf (AST/SGOT) 13U/L (0-50) Alanine Aminotransferase (ALT/SGPT) 15U/L (0-44) Alkaline Phosphatase 47U/L (25-160) Troponin T < 0.010ug/L (0.0-0.011) Total Protein 5.9g/dL (6.4-8.4) Albumin 3.8g/dL (3.4-5.0) Lactic Acid Level 1.4mmol/L (0.4-2.0) X-Ray Chest Interpretation Chest Xray Interpretation: PROCEDURE: X-RAY CHEST, TWO VIEWS ([id number]) INDICATIONS: gas in neck ? infection TECHNIQUE: 2 views of the chest were acquired. COMPARISON: Chest 04/15/2017, 04/13/2017, 04/08/2016 FINDINGS: Surgical changes and devices: None. Lungs and pleura: No pleural effusions or pneumothorax. No focal consolidation, diffuse accentuation of interstitial markings. Mediastinum: Mediastinal contours are normal. Heart size is normal. Bones and chest wall: No suspicious bony abnormalities. Thoracic spondylosis. Soft tissues appear unremarkable. Probable gallstones. IMPRESSION: 1. Mild, diffuse interstitial prominence could be related to incomplete inspiration. Possibility of atypical or viral pneumonitis also considered. 2. Probable cholelithiasis. Dictated by: Wilian Bartlett M.D. on 05/17/2017 at 14:03 Approved by: Wilian Bartlett M.D. on 05/17/2017 at 14:07 CT Head Interpretation PROCEDURE: CT BRAIN WITHOUT CONTRAST ([id number]) INDICATIONS: headache TECHNIQUE: Noncontrast 4.5 mm thick angled axial sections acquired from the foramen magnum to the vertex, with coronal reformats. COMPARISON: None. FINDINGS: Image quality: Excellent. CSF spaces: Basal cisterns are patent. No extra-axial fluid collections. The ventricles are symmetric in size and shape. Brain: No intracranial bleeds or masses. There is cerebral volume loss for age, with resultant ventricular and sulcal prominence. There are periventricular and deep white matter chronic small vessel ischemic changes. There is intracranial internal carotid artery atherosclerosis. There is gas within the cavernous sinuses bilaterally. Skull and face: Calvarium and visualized facial bones appear intact, without suspicious lesions. There is gas within the superficial and deep soft tissues of the face, adjacent to the masseter muscles and pterygoid plates, as well as within the pre-maxillary regions. Sinuses: There is complete opacification of the left maxillary sinus. Mastoids are clear. IMPRESSION: 1. No intracranial hemorrhage. 2. Gas within the soft tissues of the face and within the cavernous sinuses, possibly related to pulmonary/mediastinal origin (e.g., pneumomediastinum or pneumothorax), or possibly an infectious process within the neck or chest. 3. Findings discussed with Faby Cortez on 05.17.17 at 1333 hrs. Dictated by: Alex Lazo M.D. on 05/17/2017 at 13:30 Approved by: Alex Lazo M.D. on 05/17/2017 at 13:34 Re-Eval/Medical Decision Med Decision/Clinical Course 62 year old male with headache of 2 weeks duration presents to the ER for evualation. Initial head CT shows gas. Chest x-ray is then ordered which is negative. Consult with ENT suggest soft tissue neck, which is done and negative. Patient has good response to imitrex. Discussed with family he has chronic sinusitis but with gas formation can be indication of acute process. Will start on augmentin for 14 days. Encouraged dental and ENT follow up. Discussed the recent anemia and need for follow up. Prov[facility] No sign of abscess or pneumonia. Discharge & Departure Impression: Primary Impression: Migraine Migraine type: without aura Intractability: not intractable Additional Impression: Anemia Anemia type: unspecified type Qualified Code: D64.9 - Anemia, unspecified Disposition: Home Patient Instructions: Migraine Headache (ED), Sinusitis (ED) Additional Instructions: Your hemoglobin and hematocrit are trending down. Your stool is guiac negative. The anemia panel has been added on. Please follow with primary care in a week. You will need repeat labs at that time. Your white count is normal. The head Ct did show gas in the soft tissues of the face and in the cavernous sinuses. Gas usually indicates an acute infection. As you have no teeth, please check with your dentist to make sure there is not a gum infection. We will cover you with augmentin 875 mg in the am and pm for 14 days. You have had an excellent response to the imitrex. You are being provided a prescription for the medication in pill form. You can cut the pill in half and start with 25 mg which can be repeated in 2 hours if pain not decreased enough. The chest x-ray is negative. The neck soft tissue is negative, no sign of any gas. Referrals: ALEJANDRO HOBSONAZ DAVIDSON (PCP) EDSupervising Provider for APC: Derian Negron MD copies to: [facility] Faby Cortez May 17, 2017 12:36
[2017-05-17] MEDS ORDERED: 0.9% Sodium Chloride 500 ML IV ONE (12:55)
[2017-05-17 13:04] LABS: BASOPHILS % (AUTO) 0.3 % (0-3); EOSINOPHILS % (AUTO) 2.3 % (0-5); MONOCYTES % (AUTO) 8.7 % (4-12); Mean Corpuscular Hemoglobin 32.4 pg (27.0-35.0); Mean Corpuscular Volume 95.1 fL (81-100); NEUTROPHILS % (AUTO) 66.8 % (40-74); Platelet Count 216 bil/L (150-400)
[2017-05-17 13:23] LABS: TROPONIN T < 0.010 ug/L (0.0-0.011)
--- NOTE | 2017-05-17 13:36 | DRSVH ---
PROCEDURE: CT BRAIN WITHOUT CONTRAST ([id number]) INDICATIONS: headache TECHNIQUE: Noncontrast 4.5 mm thick angled axial sections acquired from the foramen magnum to the vertex, with c oronal reformats. COMPARISON: None. FINDINGS: Image quality: Excellent. CSF spaces: Basal cisterns are patent. No extra-axial fluid collections. The ventricles are symmet jose j in size and shape. Brain: No intracranial bleeds or masses. There is cerebral volume loss for age, with resultant vent ricular and sulcal prominence. There are periventricular and deep white matter chronic small vessel ischemic changes. There is intracranial internal carotid artery atherosclerosis. There is gas within the cavernous sinuses bilaterally. Skull and face: Calvarium and visualized facial bones appear intact, without suspicious lesions. Th ere is gas within the superficial and deep soft tissues of the face, adjacent to the masseter muscles and pterygoid plates, as well as within the pre-maxillary regions. Sinuses: There is complete opacification of the left maxillary sinus. Mastoids are clear. IMPRESSION: 1. No intracranial hemorrhage. 2. Gas within the soft tissues of the face and within the cavernous sinuses, possibly related to pulm onary/mediastinal origin (e.g., pneumomediastinum or pneumothorax), or possibly an infectious process within the neck or chest. 3. Findings discussed with Faby Cortez on 05.17.17 at 1333 hrs. Dictated by: Alex Lazo M.D. on 05/17/2017 at 13:30 Approved by: Alex Lazo M.D. on 05/17/2017 at 13:34
[2017-05-17] MEDS ORDERED: Ondansetron 2 mg/mL 2 mL Inj IVPUSH ONE (13:50)
[2017-05-17] MEDS ORDERED: HYDROmorphone 0.5 mg/0.5 mL iSecure Syringe IVPUSH ONE (13:50)
--- NOTE | 2017-05-17 14:08 | DRSVH ---
PROCEDURE: X-RAY CHEST, TWO VIEWS ([id number]) INDICATIONS: gas in neck ? infection TECHNIQUE: 2 views of the chest were acquired. COMPARISON: Chest 04/15/2017, 04/13/2017, 04/08/2016 FINDINGS: Surgical changes and devices: None. Lungs and pleura: No pleural effusions or pneumothorax. No focal consolidation, diffuse accentuation of interstitial markings. Mediastinum: Mediastinal contours are normal. Heart size is normal. Bones and chest wall: No suspicious bony abnormalities. Thoracic spondylosis. Soft tissues appear un remarkable. Probable gallstones. IMPRESSION: 1. Mild, diffuse interstitial prominence could be related to incomplete inspiration. Possibility of a typical or viral pneumonitis also considered. 2. Probable cholelithiasis. Dictated by: Wilian Bartlett M.D. on 05/17/2017 at 14:03 Approved by: Wilian Bartlett M.D. on 05/17/2017 at 14:07
--- NOTE | 2017-05-17 15:09 | DRSVH ---
PROCEDURE: CT NECK SOFT TISSUES WITH CONTRAST ([id number]) INDICATIONS: ? gas in neck TECHNIQUE: After the administration of intravenous contrast, 3.0 mm axial sections acquired from the sella to th e aortic arch. Additional oblique axial 3.0 mm sections acquired through the pharynx. 3 mm thick co sahil reformats were generated. For radiation dose reduction, the following was used: automated exp osure control. COMPARISON: CT brain 05/17/2017 FINDINGS: Image quality: Excellent. Lymph nodes: No enlarged lymph nodes seen throughout the neck. Vessels: Visualized vasculature appears patent. Neck spaces: The oropharynx, nasopharynx, and pharynx demonstrate no mucosal lesions. The vocal cor ds, false vocal cords, pyriform sinuses, epiglottis, vallecula, and tongue base all appear normal. E xtramucosal spaces appear unremarkable. Glands: The parotid and submandibular glands appear normal. Thyroid gland contains calcifications o n the right. Miscellaneous: Visualized brain and orbits appear normal. Lung apices appear clear with no pneumoth orax or pneumomediastinum. Superficial soft tissues appear normal. Bones: No suspicious bony lesions. Visualized sinuses again show chronic maxillary sinusitis, left greater than right, mastoids appear unremarkable. IMPRESSION: 1. No subcutaneous emphysema is identified. No pneumothorax or pneumomediastinum in the included area s. No evidence of infectious/inflammatory process in the neck. 2. Chronic bilateral maxillary sinusitis, left greater than right. Dictated by: Wilian Bartlett M.D. on 05/17/2017 at 15:01 Approved by: Wilian Bartlett M.D. on 05/17/2017 at 15:08
[2017-05-17] MEDS ORDERED: Albuterol-Ipratropium 3 mL Inhalation Solution NEB ONE (15:35)
[2017-05-17 15:46] VITALS: PULSE 60; RESP 16; O2SAT 96
[2017-05-17 16:00] LABS: Unsaturated Iron Binding 259.3 ug/dL
[2017-05-17 17:11] VITALS: BP 133/77; PULSE 72; RESP 16; O2SAT 97
[2017-05-18 08:09] LABS: Vitamin B12 272 pg/mL (211-946)
== END 2017-05-17 17:14 | disposition home or self-care (01) ==
LOC: SED 11:58
DX: G43.909 Migraine, unspecified, not intractable, without status migrainosus (principal); D64.9 Anemia, unspecified; I10 Essential (primary) hypertension; E11.9 Type 2 diabetes mellitus without complications; Z87.891 Personal history of nicotine dependence; Z79.82 Long term (current) use of aspirin; Z79.84 Long term (current) use of oral hypoglycemic drugs; Z79.4 Long term (current) use of insulin; Z88.1 Allergy status to other antibiotic agents; Z88.8 Allergy status to other drugs, medicaments and biological substances
CPT/HCPCS: 36415; 70450; 70491; 71020; 80053; 82607; 82728; 82746; 82948; 83540; 83550; 83605; 84484; 85025; 85045; 93005; 94664; 96361; 96372; 96374; 96375; 99285; J1170; J1885; J2405; J3030; J7040; J7620; Q9967